=== PATIENT | female | born 1955 | race Caucasian/White ===

== ENCOUNTER 2017-06-05 01:37 | Inpatient (IN) ==
[2017-06-05] MEDS ORDERED: ASPIRIN PO STA (01:49)
[2017-06-05] MEDS ORDERED: DUONEB (A & A) INH ONE (01:51)
[2017-06-05] MEDS ORDERED: SOLU-MEDROL IV ONE (01:51)
[2017-06-05] MEDS ORDERED: ROBITUSSIN PO ONE (01:52)
--- NOTE | 2017-06-05 02:00 | EKG Report ---
Test Performed on : 06/05/2017 01:51:11 AM Test Reason : CP Blood Pressure : / mmHG Vent. Rate : 095 BPM Atrial Rate : 095 BPM P-R Int : 138 ms QRS Dur : 076 ms QT Int : 382 ms P-R-T Axes : 055 013 040 degrees QTc Int : 480 ms Normal sinus rhythm. Cannot rule out Inferior infarct , age undetermined Abnormal ECG When compared with ECG of 01-JUN-2017 15:31, (Unconfirmed) No significant change was found Unconfirmed Result
[2017-06-05 02:06] LABS: MANUAL DIFF NEEDED? NO
[2017-06-05 02:15] LABS: BASO% 0.3 % (0.0-0.8); EOS# 0.38 X1000 (0.0-0.7); EOS% 2.8 % (0.0-10.0); HEMATOCRIT 30.5 % (37.0-47.0); HEMOGLOBIN 9.7 g/dL (12.0-16.0); IMM GRAN# 0.04 X1000 (0.0-0.04); IMM GRAN% 0.3 % (0.0-0.5); LYMPH# 3.91 X1000 (1.2-3.4); LYMPH% 28.6 % (20.5-51.1); MCHC 31.8 g/dL (33-37); MONO# 0.98 X1000 (0.11-0.59); MONO% 7.2 % (1.7-9.3); MPV 10.5 FL (7.4-10.4); NEUT% 60.8 % (42.2-75.2); PLT 330 X1000 (130-400); RBC 3.35 XMIL (4.2-5.4)
[2017-06-05] MEDS ORDERED: ROBITUSSIN ONE (02:24)
[2017-06-05 02:32] LABS: INR 0.9 (0.86-1.15); PROTIME 12.9 Seconds (12.1-15.5); PTT PL 26.4 Seconds (22.6-43.9)
--- NOTE | 2017-06-05 02:48 | PROVIDER DOCUMENTATION ---
This chart was entered by Nataliia Anguiano Scribe, acting as scribe for Wilder Paez MD. HPI-Respiratory General - General Chief Complaint: Shortness of Breath Stated Complaint: short of breath Time Seen by Provider: 06/05/17 01:49 Source: patient Allergies/Adverse Reactions: Patient Allergies Allergy/AdvReac Type Severity Reaction Status Date / Time Sulfa (Sulfonamide Allergy HIVES Verified 04/10/17 08:08 Antibiotics) tramadol Allergy Unknown Verified 06/05/17 02:41 Home Medications: Home Medication List Medication Instructions Recorded Confirmed Last Taken Type Albuterol Sulfate [Proair Hfa] 0 puff IH Q6HR PRN #1 hfa.aer.ad 04/27/17 Unknown Rx Gemfibrozil 600 mg PO DAILY #30 tablet 04/27/17 06/05/17 Unknown Rx Lisinopril 40 mg PO DAILY #30 tablet 06/01/17 06/05/17 Unknown Rx Metformin [Glucophage] 1,000 mg PO BID #60 tablet 06/01/17 06/05/17 Unknown Rx Venlafaxine [Effexor] 75 mg PO DAILY #30 tablet 06/01/17 06/05/17 Unknown Rx - History of Present Illness-Resp Nature of Presenting Problem: 61 Y/O F presents to ER by EMS with the complain of SOB. pt states that she feels like something is sitting on her chest and makes it hard to breathe. pt states that she has COPD and was diagnosed with pneumonia last month. Severity in ED: reports: moderate Onset/Duration: reports: just prior to arrival Timing: reports: still present Exposure: reports: unknown cause Cough Quality/Degree: reports: sputum Current Respiratory Medication Therapy: Initiated see nurses note Review of Systems - Adult - REVIEW OF SYSTEMS - ADULT Constitutional: reports: no symptoms reported Eyes: reports: no symptoms reported Ears, Nose, Mouth & Throat: reports: no symptoms reported Cardiovascular: reports: no symptoms reported Respiratory: reports: cough, shortness of breath, wheezing Gastrointestinal: reports: no symptoms reported Genitourinary: reports: no symptoms reported Musculoskeletal: reports: no symptoms reported Integumentary: reports: no symptoms reported Neurological: reports: no symptoms reported Psychiatric: reports: no symptoms reported Endocrine: reports: no symptoms reported Hematologic/Lymphatic: reports: no symptoms reported Allergic/Immunologic: reports: no symptoms reported All Other Systems: Reviewed and Negative Past History - Adult - PAST MEDICAL HISTORY-ADULT Review of Records: reports: Old Records Reviewed, Nursing Assessment Review Major Childhood Illnesses: reports: denies history Cardiovascular: reports: CHF, HTN, hyperlipidemia Respiratory: reports: bronchitis, COPD Gastrointestinal: reports: GERD Obstetrical/Gynecological: reports: denies history Genitourinary: reports: denies history Musculoskeletal: reports: denies history Neurological: reports: TIA Psychiatric: reports: bipolar Endocrine/Immune: reports: Diabetes Other Conditions: reports: denies history - PRIOR SURGERIES/PROCEDURES Surgical/Procedure History: reports: appendectomy, hysterectomy, tonsillectomy - PRIOR HOSPITALIZATIONS Prior Hospitalizations: reports: none - IMMUNIZATION STATUS Childhood Immunizations: See Nurse Assessment Flu Vaccine: See Nurse Assessment - FAMILY HISTORY Family History: reviewed, not pertinent - SOCIAL HISTORY Smoking: cigarettes Provider spent 3-5 mins advising pt. on dangers of tobacco.: Discussed manners to quit use, and f/u contacts for add'l counseling. Physical Exam-General - PHYSICAL EXAM-ADULT Initial Vital Signs Reviewed: Yes - CONSTITUTIONAL General Appearance: alert, mild distress - EYES Eyes: PERRL/EOMI, pink conjunctivae - HEAD, EARS, NOSE, MOUTH & THROAT HENMT: moist mucous membranes, normal ENT inspection, TMs normal - NECK Neck: non-tender, full range of motion, supple - RESPIRATORY Respiratory: rales, rhonchi, wheezing - CARDIOVASCULAR Cardiovascular: normal peripheral pulses, regular rate, rhythm, no edema - GASTROINTESTINAL (ABDOMEN) Abdominal Exam: normal bowel sounds, non tender, soft - MUSCULOSKELETAL Back Exam: normal inspection, no CVA tenderness, no vertebral tenderness Extremity: non-tender, normal inspection - SKIN Integumentary: normal color, normal turgor, warm/dry - NEUROLOGIC Neurologic: grossly normal, no motor/sensory deficits - PSYCHIATRIC Psych/Mental Status: normal mood/affect, normal thought content, normal thought process, oriented x 3 Progress - PLAN OF CARE/RESULTS Progress/Plan/Lab Results: Vital Signs - 8 hr 06/05/17 01:39 06/05/17 01:57 06/05/17 02:36 Temperature 98.2 F 98.0 F Pulse Rate 102 H 94 H 92 H Respiratory Rate 20 20 20 Blood Pressure 150/92 160/79 O2 Sat by Pulse Oximetry 92 L 94 L 96 Laboratory Results - last 24 hr 06/05/17 06/05/17 06/05/17 02:00 02:00 02:00 WBC 13.69 H RBC 3.35 L Hgb 9.7 L Hct 30.5 L MCV 91.0 MCH 29.0 MCHC 31.8 L RDW Std Deviation 15.5 H Plt Count 330 MPV 10.5 H Immature Gran % (Auto) 0.3 Neut % (Auto) 60.8 Lymph % (Auto) 28.6 Cedar % (Auto) 7.2 Eos % (Auto) 2.8 Baso % (Auto) 0.3 Immature Gran # (Auto) 0.04 Neut # (Auto) 8.34 H Lymph # (Auto) 3.91 H Cedar # (Auto) 0.98 H Eos # (Auto) 0.38 Baso # (Auto) 0.04 PT 12.9 INR 0.90 APTT (Factor Assay) 26.4 Troponin T < 0.010 Orders Category Date Time Status Cardiac Monitoring DIRECTED Care 06/05/17 01:50 Active Oxygen Therapy- ED Nursing DIRECTED Care 06/05/17 01:50 Active Saline Loc NOW Care 06/05/17 01:50 Active CHEST-PORTABLE [RAD] Stat Exams 06/05/17 01:51 Taken CBC WITH ELECTRONIC DIFF [HEME] Stat Lab 06/05/17 02:00 Completed CK PROFILE [SP CHEM] Stat Lab 06/05/17 02:00 Received COMPREHENSIVE METABOLIC PANEL [CHEM] Stat Lab 06/05/17 02:00 Received MAGNESIUM [CHEM] Stat Lab 06/05/17 02:00 Received PRO B-NATRIURETIC PEPTIDE Stat Lab 06/05/17 02:00 Received [address]IME WITH INR PL [COAG] Stat Lab 06/05/17 02:[address] [COAG] Stat Lab 06/05/17 02:00 Completed TROPONIN T Stat Lab 06/05/17 02:00 Completed Albuterol 2.5MG/Ipratrop 0.5MG [Duoneb (A & A)] Med 06/05/17 01:51 Discontinued 3 ml INH NOW ONE Aspirin Med 06/05/17 01:49 Discontinued 325 mg PO STAT STA Guaifenesin [Robitussin] Med 06/05/17 01:52 Discontinued 10 ml PO NOW ONE Guaifenesin [Robitussin] Med 06/05/17 02:24 Discontinued 200 mg .ROUTE .STK-MED ONE Methylprednisolone Sod Succ [Solu-Medrol] Med 06/05/17 01:51 Discontinued 125 mg IV NOW ONE Aerosol Treatments Routine Oth 06/05/17 01:51 Active Aerosol Treatments Stat Oth 06/05/17 01:51 Active EKG [EKG] Stat Ther 06/05/17 01:50 Draft Result Diagrams: 06/05/17 02:00 - EKG 1 Time of EKG reading by physician:: 01:51 EKG Read and Signed by:: Wilder Paez EKG Interpretation (*Must complete 3 of following elements*): Abnormal Rate: 95 Rhythm: normla sinus rhythm Comments: abnomal ECG - XRAY 1 XRAY: Bilateral XRAY Study: Chest Impression: Abnormal XRAY Interpretation: cardiomegaly, otherwise normal by Dr. Paez Departure - Departure Date of Disposition Decision: 06/05/17 Time of Disposition Decision: 02:47 DIAGNOSIS: COPD exacerbation Disposition: ADMITTED INPATIENT 09 Certified Medical Emergency: Emergent Condition: Stable Referrals and Follow-Ups: Shadi Chahal MD [Primary Care Provider] - - Critical Care Note This patient required my direct & personal management of CC.: No Attestation - Physician/ DUNG Attestation The physician spent face to face time with patient:: Yes Advanced Practice Provider documentation review:: Supervising physician onsite and consulted in the evaluation and care of this patient. The physician did have a face to face encounter with the patient. This chart was documented by the indicated scribe, (Nataliia Anguiano Scribe) and accurately reflects the services I performed and decisions made by Jeannine syed Christophe I, MD, as attested by the provider's signature.
[2017-06-05 02:53] LABS: AGAP 14; ALBUMIN 3.8 g/dL (3.5-5.0); ALKALINE PHOSPHATASE 82 U/L (32-104); BUN 12 mg/dL (8-22); CALCIUM 9.4 mg/dL (8.8-10.2); CHLORIDE 109 mmol/L (98-107); CK PROFILE 93 U/L (24-173); COSMO 288; GOT 14 U/L (10-30); GPT 10 U/L (10-36); MAGNESIUM 1.6 mg/dL (1.5-2.7); POTASSIUM 3.6 mmol/L (3.5-5.1); SODIUM 143 mmol/L (136-145); TCO2 20 mmol/L (25-35); TOTAL BILIRUBIN < 0.15 mg/dL (0.20-1.00); TOTAL PROTEIN 6.1 g/dL (6.3-8.3)
[2017-06-05] MEDS ORDERED: DUONEB (A & A) INH PRN (07:26)
[2017-06-05] MEDS: DUONEB (A & A) INH SCH ×3 (09:10→21:44)
--- NOTE | 2017-06-05 09:43 | Diag Imaging Result Doc PS360 ---
EXAM: CHEST-PORTABLE INDICATION: sob TECHNIQUE: One view COMPARISON: 06/01/2017 FINDINGS: The lungs are grossly clear. There is no discrete pleural fluid collection or pneumothorax. The cardiomediastinal silhouette and central vasculature are grossly unremarkable. There are couple old rib fractures on the right. IMPRESSION: No evidence of acute pathology by plain radiograph. Electronically signed by Jack Sunshine 06/05/2017 9:40 AM
[2017-06-05] MEDS ORDERED: VENTOLIN HFA INH PRN (09:50)
[2017-06-05] MEDS: PRINIVIL PO SCH (10:31)
[2017-06-05] MEDS: LOPID PO SCH (10:31)
[2017-06-05] MEDS: LASIX PO SCH (10:31)
[2017-06-05] MEDS: ROCEPHIN 1 GM/NS 1 GM/50 ML IVPB IV SCH (10:34)
[2017-06-05] MEDS: HUMALOG SUBQ SCH ×3 (10:54→20:22)
[2017-06-05] MEDS: EFFEXOR PO SCH (12:11)
[2017-06-05] MEDS: NICODERM PATCH TD SCH (12:11)
--- NOTE | 2017-06-05 12:43 | HISTORY AND PHYSICAL ---
CHIEF COMPLAINT: Shortness of breath x1 week. HISTORY OF PRESENTING ILLNESS: This is a 61-year-old female who presents to [facility] ER with complaints of shortness of breath that has progressively worsened over the last week. States that approximately 1 month ago she was treated for pneumonia. She now has shortness of breath and a productive cough. When she arrived to the emergency room she had an O2 saturation of 92% on room air. Chest x-ray showed no evidence of acute pathology by plain radiograph. Her white blood cells were mildly elevated at 13.69. Per ER documentation she was noted to be having wheezing, rhonchi, and rales so she was admitted for further evaluation and treatment. PAST MEDICAL HISTORY: Bipolar schizoaffective disorder, COPD, CHF, hypertension, hyperlipidemia, GERD, TIA, and diabetes. PAST SURGICAL HISTORY: Appendectomy, hysterectomy, and tonsillectomy. FAMILY HISTORY: Noncontributory. SOCIAL HISTORY: She is currently [facility] at a homeless [facility]. Smokes 1 pack of cigarettes a day and has done so for 40 years. Denies any alcohol or illicit drug use. ALLERGIES: Sulfa and tramadol. HOME MEDICATIONS: She takes ProAir 2 puff inhalation q.6 hours p.r.n., Lasix 40 mg p.o. daily, gemfibrozil 600 mg p.o. daily, lisinopril 40 mg p.o. daily, metformin 500 mg p.o. b.i.d., Seroquel 400 mg p.o. at bedtime, and Effexor 75 mg p.o. daily. LABORATORY DATA: Showed a white blood cell count of 13.69, hemoglobin 9.7, hematocrit 30.5, platelets 330,000. PT and INR of 12.9 and 0.94. Sodium of 143, potassium 3.6, chloride 109, CO2 20, BUN of 12, creatinine 1.0, glucose 158, magnesium 1.6, creatine kinase of 93. Troponin less than 0.010. ProBNP of 624. EKG showed normal sinus rhythm. Chest x-ray showed no evidence of acute pathology by plain radiograph. Sputum culture is pending. REVIEW OF SYSTEMS: She denies any fever, chills, blurred vision, dizziness, chest pain. She has had a productive cough and shortness of breath. Denies any abdominal pain, constipation, diarrhea, or burning or hurting with urination. PHYSICAL EXAMINATION: VITAL SIGNS: On arrival, she had a temperature of 98.2 degrees, pulse 102, respirations 20, blood pressure 150/92, saturating 92% on room air on arrival. Currently she is saturating 95% on 2 L via nasal cannula. GENERAL: This is a 61-year-old morbidly obese, female who is lying in the bed and answers questions appropriately. HEENT: Normocephalic and atraumatic. Pupils are equal, round, reactive to light. Extraocular movements are intact. Oropharynx and nares are clear. NECK: Supple. LUNGS: Clear to auscultation bilaterally with equal lung expansion and chest wall movement. HEART: With regular rate and rhythm. No murmurs, rubs, or gallops. ABDOMEN: Soft, nontender, nondistended. Bowel sounds are present x4 quadrants. EXTREMITIES: There is no clubbing, cyanosis, or edema. NEUROLOGICAL: The cranial nerves 2 through 12 are grossly intact. ASSESSMENT: 1. An acute chronic obstructive pulmonary disease exacerbation. 2. Hyperglycemia with known diabetes type 2. Most likely related to steroid use. 3. Hypertension. 4. Tobacco abuse. PLAN: She was admitted to the medical unit at [facility]. Placed on a diabetic diet. We will continue her home medications as previously identified. Placed on Rocephin 1 gram IV q.24. She received Solu-Medrol 125 mg IV x1 in the ER. When she arrived her lung sounds were rhonchi, rales, and wheezing per ER documentation. This a.m. they are clear, so I am not going to continue any Solu-Medrol at this time. She does have DuoNeb q.6 hours routinely and q.[address] on pattern blood sugars with sliding scale insulin. We will also give a nicotine patch. Discussed smoking cessation with this patient, who verbalized understanding. Dictated by CHARLES Daugherty for Niranjan Johnston MD cc: CHARLES Daugherty MD Moses Awoniyi, MD
[2017-06-05] MEDS: GLUCOPHAGE PO SCH (16:34)
[2017-06-05] MEDS: TYLENOL PO PRN (16:35)
[2017-06-05] MEDS: SEROQUEL PO SCH (20:22)
[2017-06-06] MEDS: DUONEB (A & A) INH SCH ×4 (03:47→22:27)
[2017-06-06 05:50] LABS: MANUAL DIFF NEEDED? NO
[2017-06-06 05:55] LABS: BASO% 0.1 % (0.0-0.8); EOS# 0.08 X1000 (0.0-0.7); EOS% 0.6 % (0.0-10.0); HEMATOCRIT 28.5 % (37.0-47.0); IMM GRAN# 0.05 X1000 (0.0-0.04); IMM GRAN% 0.3 % (0.0-0.5); LYMPH# 3.48 X1000 (1.2-3.4); LYMPH% 24.1 % (20.5-51.1); MCH 28.4 PG (27-31); MCHC 31.6 g/dL (33-37); MCV 89.9 FL (81-99); MONO# 0.92 X1000 (0.11-0.59); MONO% 6.4 % (1.7-9.3); MPV 10.7 FL (7.4-10.4); NEUT% 68.5 % (42.2-75.2); PLT 330 X1000 (130-400); RBC 3.17 XMIL (4.2-5.4)
[2017-06-06] MEDS: HUMALOG SUBQ SCH ×2 (06:18→10:25)
[2017-06-06 06:22] LABS: AGAP 9; BUN 17 mg/dL (8-22); CALCIUM 8.6 mg/dL (8.8-10.2); CHLORIDE 107 mmol/L (98-107); COSMO 286; POTASSIUM 3.7 mmol/L (3.5-5.1); SODIUM 141 mmol/L (136-145); TCO2 26 mmol/L (25-35)
--- NOTE | 2017-06-06 06:28 | PROGRESS NOTE ---
DATE: 06/05/2017 ADDENDUM: Patient was seen and examined and discussed with nurse practitioner. She has been having shortness of breath, cough and congestion past couple of days, decided to come to the hospital but the symptoms did not improve. She actually is feeling a little bit better now than when she got to the ER before her treatments in the ER. Denies any current chest pains or palpitations. States that she is wheezing. We will admit her to the hospital, treat in usual fashion. Place her on antibiotics, steroids, breathing treatments and oxygen. cc: Niranjan Johnston MD
[2017-06-06] MEDS: EFFEXOR PO SCH (09:12)
[2017-06-06] MEDS: NICODERM PATCH TD SCH (09:12)
[2017-06-06] MEDS: LASIX PO SCH (09:12)
[2017-06-06] MEDS: GLUCOPHAGE PO SCH ×2 (09:13→17:05)
[2017-06-06] MEDS: PRINIVIL PO SCH (09:13)
[2017-06-06] MEDS: LOPID PO SCH (09:13)
[2017-06-06] MEDS: ROCEPHIN 1 GM/NS 1 GM/50 ML IVPB IV SCH (10:25)
[2017-06-06] MEDS: TYLENOL PO PRN ×2 (10:27→17:10)
--- NOTE | 2017-06-06 14:52 | PROGRESS NOTE ---
DATE: 06/06/2017 SUBJECTIVE: Ms Burr states that she is breathing better. She denies any chest pain or palpitations. OBJECTIVE: Vital Signs: Blood pressure is 169/82, with a heart rate of 100, respirations 18, temperature is 97.6 degrees axillary, with O2 saturations of 96% to 98% on 2 L nasal cannula. Cardiovascular: Regular rate and rhythm. S1 and S2 appreciated. Pulmonary: Breath sounds have some scattered wheezes, although they are very faint. Gastrointestinal: Abdomen is soft, nontender and nondistended, with bowel sounds in all 4 quadrants. Extremities: No clubbing, cyanosis, or edema. Calves are nontender. Pulses are palpable. LABORATORIES: WBC is 14.4, with a hemoglobin of 9, hematocrit of 28.5, and platelets of 330,000. Sodium is 141, potassium 3.7, BUN 17, creatinine 0.8, with blood sugars ranging in the 130- to 200- range. ASSESSMENT: 1. [id number], chronic obstructive pulmonary disease exacerbation. 2. Hyperglycemia, with known diabetes type 2. This is most likely related to steroids. 3. Hypertension. 4. Tobacco use and abuse. PLAN: We will continue with her current treatments. She does have some scattered wheezes. We will place her on a low-dose of p.o. prednisone. We will continue to follow pattern of blood glucose with sliding-scale insulin, as well as labs. Will continue with nicotine patch. Dictated by CHARLES Goldman for Niranjan Johnston MD cc: CHARLES Goldman MD
[2017-06-06] MEDS: HUMALOG DOSE (PARKWAY) SUBQ SCH ×2 (17:05→21:51)
[2017-06-06] MEDS: SEROQUEL PO SCH (21:51)
[2017-06-07] MEDS: DUONEB (A & A) INH SCH ×4 (03:29→22:08)
--- NOTE | 2017-06-07 03:54 | PROGRESS NOTE ---
DATE: 06/06/2017 ADDENDUM: Patient seen and examined. Discussed with and care plan made with nurse practitioner involved. Patient states she is feeling a little bit better. She is wheezing but not as bad as on admission, slept a little better last night. Denies any chest pain, palpitations. PLAN: Will continue breathing treatments, antibiotics, oxygen. Will wean steroids, hopefully home in the next 1-2 days. cc: Niranjan Johnston MD
[2017-06-07] MEDS: HUMALOG DOSE (PARKWAY) SUBQ SCH ×4 (06:34→21:20)
[2017-06-07] MEDS: NICODERM PATCH TD SCH (08:58)
[2017-06-07] MEDS: PRINIVIL PO SCH (08:58)
[2017-06-07] MEDS: EFFEXOR PO SCH (08:58)
[2017-06-07] MEDS: LOPID PO SCH (08:58)
[2017-06-07] MEDS: GLUCOPHAGE PO SCH ×2 (08:58→16:58)
[2017-06-07] MEDS: LASIX PO SCH (08:59)
[2017-06-07] MEDS ORDERED: SOLU-MEDROL IV SCH (09:00)
[2017-06-07] MEDS: ROCEPHIN 1 GM/NS 1 GM/50 ML IVPB IV SCH (09:32)
[2017-06-07] MEDS: SOLU-MEDROL IV SCH ×2 (09:32→16:58)
[2017-06-07] MEDS: TYLENOL PO PRN ×2 (10:26→20:44)
--- NOTE | 2017-06-07 16:26 | PROGRESS NOTE ---
DATE: 06/07/2017 SUBJECTIVE: Ms. Burr states that she is breathing better today. She continues with supplemental oxygen. She denies any chest pain, fever, chills, cough. OBJECTIVE: Vital Signs: Blood pressure is 129/57 with a heart rate of 90, respirations are 20, temperature is 98.5 degrees with O2 saturations are 94-97% on 2 L nasal cannula. Cardiovascular: Regular rate and rhythm, S1, S2 appreciated. Pulmonary: She does have some scattered wheezes, although they are very faint. Chest rises and falls symmetrically with respiration. No increased work of breathing noted. Gastrointestinal: Abdomen is soft, nontender, nondistended. Bowel sounds in all 4 quadrants. Extremities: No clubbing, cyanosis, or edema. Calves are nontender. Pulses are palpable x4. LABORATORY: Blood sugars are ranging in the 130-190 range. ASSESSMENT: 1. Acute on chronic obstructive pulmonary disease exacerbation, improving. 2. Hyperglycemia, with known diabetes type 2. This is most likely related to steroids. We will continue to monitor. 3. Hypertension. 4. Tobacco use and abuse. PLAN: We will continue with her current treatment and continue with oral steroid. We will continue with her current regimen. Continue with steroids IV. Dictated by CHARLES Goldman for Niranjan Johnston MD cc: CHARLES Goldman MD
[2017-06-07] MEDS: SEROQUEL PO SCH (20:38)
[2017-06-08] MEDS: SOLU-MEDROL IV SCH (00:10)
[2017-06-08] MEDS: DUONEB (A & A) INH SCH ×4 (03:35→21:40)
[2017-06-08] MEDS: HUMALOG DOSE (PARKWAY) SUBQ SCH ×4 (06:17→21:16)
[2017-06-08 06:24] LABS: HEMATOCRIT 33.3 % (37.0-47.0); HEMOGLOBIN 10.8 g/dL (12.0-16.0); MCH 28.7 PG (27-31); MCHC 32.4 g/dL (33-37); MCV 88.6 FL (81-99); MPV 10.7 FL (7.4-10.4); RBC 3.76 XMIL (4.2-5.4)
[2017-06-08 07:06] LABS: AGAP 13; BUN 26 mg/dL (8-22); CALCIUM 8.8 mg/dL (8.8-10.2); CHLORIDE 97 mmol/L (98-107); COSMO 286; SODIUM 134 mmol/L (136-145); TCO2 24 mmol/L (25-35)
[2017-06-08] MEDS: LASIX PO SCH (08:07)
[2017-06-08] MEDS: LOPID PO SCH (08:07)
[2017-06-08] MEDS: NICODERM PATCH TD SCH (08:07)
[2017-06-08] MEDS: EFFEXOR PO SCH (08:07)
[2017-06-08] MEDS: GLUCOPHAGE PO SCH ×2 (08:07→16:22)
[2017-06-08] MEDS: PRINIVIL PO SCH (08:07)
[2017-06-08] MEDS ORDERED: SOLU-MEDROL IV SCH ×2 (09:00)
[2017-06-08] MEDS ORDERED: ROCEPHIN 1 GM in NS 50 ML IV SCH (10:00)
[2017-06-08] MEDS: TYLENOL PO PRN (16:22)
--- NOTE | 2017-06-08 20:00 | PROGRESS NOTE ---
DATE: 06/08/2017 SUBJECTIVE: Patient without any new complaints. States that she is feeling much better. Denies any chest pain, palpitations. Denies any fevers. States she is still tired and fatigued, having difficulty getting to the restroom. OBJECTIVE: Vital Signs: Reviewed. She is afebrile. Blood pressure is stable. Heart rate stable. Respiratory rate 22. General: Patient is awake, alert, currently in no respiratory distress. Neck: Supple. Cardiovascular: Regular rate. Chest: Much more clear. Better air movement. Abdomen: Soft. Extremities: Moves all extremities. Neurologic: No focal changes. Skin: Warm and dry. No rashes. LABORATORY STUDIES: Reviewed. ASSESSMENT: 1. Chronic obstructive pulmonary disease exacerbation. 2. Pulmonary edema. 3. Chronic tobacco abuse. PLAN: Discussed with patient the perils of smoking, as well as ways to stop. Discussed with patient the breathing treatments. We will continue to follow. Hopefully, we will be able to decrease her steroids today and home tomorrow. cc: Niranjan Johnston MD
[2017-06-08] MEDS: SEROQUEL PO SCH (21:18)
[2017-06-09] MEDS: TYLENOL PO PRN ×2 (00:06→13:49)
[2017-06-09] MEDS: DUONEB (A & A) INH SCH (03:33)
[2017-06-09 06:23] LABS: HEMATOCRIT 30.9 % (37.0-47.0); HEMOGLOBIN 9.8 g/dL (12.0-16.0); MCH 28.7 PG (27-31); MCHC 31.7 g/dL (33-37); MCV 90.4 FL (81-99); MPV 10.5 FL (7.4-10.4); RBC 3.42 XMIL (4.2-5.4)
[2017-06-09] MEDS: HUMALOG DOSE (PARKWAY) SUBQ SCH (06:24)
[2017-06-09 06:56] LABS: AGAP 11; ALBUMIN 3.4 g/dL (3.5-5.0); ALKALINE PHOSPHATASE 70 U/L (32-104); BUN 36 mg/dL (8-22); CALCIUM 8.4 mg/dL (8.8-10.2); CHLORIDE 103 mmol/L (98-107); COSMO 298; GOT 6 U/L (10-30); GPT 8 U/L (10-36); POTASSIUM 3.4 mmol/L (3.5-5.1); SODIUM 141 mmol/L (136-145); TCO2 28 mmol/L (25-35); TOTAL BILIRUBIN < 0.15 mg/dL (0.20-1.00); TOTAL PROTEIN 5.9 g/dL (6.3-8.3)
[2017-06-09] MEDS ORDERED: OMNICEF PO SCH (09:00)
[2017-06-09] MEDS ORDERED: ZITHROMAX PO SCH (09:00)
[2017-06-09] MEDS: LASIX PO SCH (10:20)
[2017-06-09] MEDS: NICODERM PATCH TD SCH (10:20)
[2017-06-09] MEDS: EFFEXOR PO SCH (10:20)
[2017-06-09] MEDS: LOPID PO SCH (10:20)
[2017-06-09] MEDS: PRINIVIL PO SCH (10:20)
[2017-06-09] MEDS: GLUCOPHAGE PO SCH (10:20)
[2017-06-09 12:08] VITALS: BP 122/59
--- NOTE | 2017-06-09 17:39 | DISCHARGE SUMMARY ---
ADMISSION DATE: 06/05/2017 DISCHARGE DATE: 06/09/2017 DIAGNOSES: 1. Acute on chronic obstructive pulmonary disease exacerbation. Resolved. 2. Hyperglycemia with known diabetes type 2. Most likely related to steroid use. 3. Hypertension. 4. Tobacco abuse. DIAGNOSTICS: 06/05/2017, chest x-ray revealed no evidence of acute pathology. HOSPITAL COURSE: Ms. Burr presented to the emergency room complaining of shortness of breath. She was found have a COPD exacerbation for which she was treated with DuoNeb q.4 with q.2 p.r.n. Steroids to taper. She did gradually improve throughout the hospitalization. We did continue her home medications as appropriate. Blood sugars were monitored. On admission she had and she was at 350. Throughout the hospitalization they did range from 160-250. PHYSICAL EXAMINATION: Cardiovascular: Regular rate and rhythm. S1, S2 appreciated. Pulmonary: Breath sounds have diminished wheezes that are much better than on admission. She has no increased work of breathing noted. Gastrointestinal: Abdomen is soft, nontender, nondistended with bowel sounds in all 4 quadrants. Extremities: No clubbing, cyanosis, or edema. Calves are nontender. Pulses are palpable x4. DISCHARGE MEDICATIONS: 1. Effexor 75 mg daily. 2. Glucophage a 1000 b.i.d. 3. Gemfibrozil 600 daily. 4. Lisinopril 40 daily. 5. Lasix 40 daily. 6. Albuterol inhaler 1 puff every 6 hours p.r.n. 7. Seroquel 400 at bedtime. 8. NicoDerm patch 21 mg daily. 9. Medrol Dosepak 4 mg as directed. 10. Omnicef 300 mg b.i.d. 11. Zithromax 500 daily. 12. Tylenol 650 q.4 hours p.r.n. FOLLOWUP: She is to follow up with her primary care physician Dr. Chahal in the next 1-2 weeks sooner if needed. The patient did state that she was concerned about having money to pay for prescriptions. Child Care Worker did work with the patient in finding affordable medications. DISPOSITION: She is being discharged home in stable condition with family members. TIME SPENT: This is a greater than 30 minute discharge. Dictated by CHARLES Goldman for Niranjan Johnston MD cc: CHARLES Goldman MD
--- NOTE | 2017-06-10 03:47 | PROGRESS NOTE ---
DATE: 06/09/2017 ADDENDUM: Patient notes that she is feeling fine. She is having a little bit of cough, but otherwise feels better. On physical exam, her lungs are much more clear. The patient is seen and examined. Plan discussed with nurse practitioner please see full note. Will discharge home. Continue Medrol Dosepak, Omnicef. I will write a prescription for Seroquel and NicoDerm patch. Discussed with patient the perils of smoking. cc: Niranjan Johnston MD
== END 2017-06-09 14:10 | disposition home or self-care (01) ==
LOC: P.ED 01:37 → P.MEDSURG 03:30
PROVIDERS: ATTEND Family Medicine

== ENCOUNTER 2019-03-19 19:49 | Inpatient (IN) ==
[2019-03-19] MEDS ORDERED: DUONEB (A & A) INH ONE (20:09)
[2019-03-19] MEDS ORDERED: SOLU-MEDROL IV ONE ×2 (20:10→21:13)
[2019-03-19 20:53] LABS: BLOOD TYPE ARTERIAL; HCO3-(ACT) 26.2 mmoll (20.0-26.0); METHB 1.4 % (0.0-1.5); PO2(98.6) 67 mmHg (60-100); SAMPLE BLOOD; SAO2 95.8 % (95.0-100.0); THB 11.2 g/dL (11.5-17.4)
[2019-03-19 20:55] LABS: BASO# 0.03 X1000 (0.0-0.2); BASO% 0.3 % (0.0-0.8); EOS% 2.6 % (0.0-10.0); HEMOGLOBIN 10.3 g/dL (12.0-16.0); IMM GRAN# 0.04 X1000 (0.0-0.04); IMM GRAN% 0.4 % (0.0-0.5); LYMPH# 2.46 X1000 (1.2-3.4); LYMPH% 21.6 % (20.5-51.1); MCH 27.5 PG (27-31); MCHC 31.2 g/dL (33-37); MCV 88.2 FL (81-99); MONO# 0.69 X1000 (0.11-0.59); MONO% 6.1 % (1.7-9.3); MPV 10.7 FL (7.4-10.4); NEUT# 7.85 X1000 (1.4-6.5); PLT 293 X1000 (130-400); RBC 3.74 XMIL (4.2-5.4); RDW 15.5 % (11.5-14.5); WBC 11.37 X1000 (4.8-10.8)
[2019-03-19 20:55] LABS: O2HB 82.1 % (95.0-99.0); PCO2(98.6) 60 mmHg (35-45)
[2019-03-19 20:56] LABS: ALLEN TEST NO; MODALITY CANNULA
--- NOTE | 2019-03-19 21:19 | Diag Imaging Result Doc PS360 ---
EXAM: CHEST-PORTABLE HISTORY: sob TECHNIQUE: Portable chest single view COMPARISON: 05/12/2018 FINDINGS: The lungs are well expanded. The heart is enlarged. The vessels are not distended. There are no infiltrates. No effusion identified. Old injury to a mid right rib. IMPRESSION: Cardiomegaly Electronically signed by Armani Adrian 03/19/2019 9:17 PM
[2019-03-19 21:27] LABS: AGAP 12; ALBUMIN 3.6 g/dL (3.5-5.0); ALKALINE PHOSPHATASE 75 U/L (32-104); BUN 22 mg/dL (8-22); CALCIUM 8.5 mg/dL (8.8-10.2); CHLORIDE 102 mmol/L (98-107); COSMO 284; CREATININE 1.2 mg/dL (0.5-0.9); ESTIMATED GFR 45; GLUCOSE 158 mg/dL (70-104); GOT 17 U/L (10-30); GPT 15 U/L (10-36); POTASSIUM 4.3 mmol/L (3.5-5.1); SODIUM 139 mmol/L (136-145); TCO2 25 mmol/L (25-35); TOTAL BILIRUBIN < 0.15 mg/dL (0.20-1.00); TOTAL PROTEIN 6.6 g/dL (6.3-8.3)
[2019-03-19] MEDS ORDERED: DUONEB (A & A) INH PRN (21:39)
[2019-03-19] MEDS ORDERED: NORCO-5 PO ONE (22:21)
[2019-03-19] MEDS ORDERED: ZOFRAN IV ONE (22:21)
[2019-03-19] MEDS: DUONEB (A & A) INH SCH (23:46)
[2019-03-20 00:42] LABS: BILIRUBIN URINE NEGATIVE (NEGATIVE); BLOOD URINE 3+ (NEGATIVE); CLARITY CLEAR (CLEAR); COLOR YELLOW; GLUCOSE URINE NEGATIVE (NEGATIVE); KETONE URINE NEGATIVE (NEGATIVE); LEUKOCYTES URINE 1+ (NEGATIVE); NITRITE URINE NEGATIVE (NEGATIVE); PROTEIN URINE 2+(100 mg/dL) mg/dL (NEGATIVE); UROBILINOGEN URINE NORMAL
[2019-03-20 00:47] LABS: URINE WBC TNTC /HPF (<10)
[2019-03-20 00:48] LABS: URINE EPITHELIAL CELLS <10 /HPF (<10)
[2019-03-20 00:49] LABS: URINE BACTERIA 2+ /HFP; URINE CAST NONE SEEN /LPF; URINE CRYSTAL NONE SEEN /HPF; URINE SOURCE CLEAN CATCH; URINE YEAST NONE SEEN /HPF
[2019-03-20] MEDS: DUONEB (A & A) INH SCH ×5 (03:46→19:13)
[2019-03-20 05:46] LABS: BE -1.6 mmoll (-3.0-3.0); BLOOD TYPE ARTERIAL; HCO3-(ACT) 23.4 mmoll (20.0-26.0); METHB 1.1 % (0.0-1.5); O2(CT) 13.9 mL/dL (15.0-23.0); PO2(98.6) 59 mmHg (60-100); SAMPLE BLOOD; SAO2 89.6 % (95.0-100.0); THB 11.8 g/dL (11.5-17.4); pH(98.6) 7.21 (7.35-7.45)
[2019-03-20 05:50] LABS: ALLEN TEST NO; MODALITY CANNULA; O2HB 83.7 % (95.0-99.0); PCO2(98.6) 69 mmHg (35-45)
[2019-03-20] MEDS: SOLU-MEDROL IV SCH ×4 (06:14→21:15)
[2019-03-20] MEDS ORDERED: MAGNESIUM SULFATE 4 GM/S.W.I. 4 GM/100 ML IVPB IV ONE (10:21)
[2019-03-20] MEDS ORDERED: ROCEPHIN 1 GM in NS 50 ML IV SCH ×4 (10:30)
[2019-03-20] MEDS ORDERED: ZITHROMAX 500 MG/NS 500 MG/250 ML IVPB IV SCH (11:00)
[2019-03-20] MEDS: NAPROSYN PO SCH ×2 (11:04→21:16)
[2019-03-20] MEDS: NORCO-10 PO PRN ×2 (11:04→17:29)
[2019-03-20] MEDS: EFFEXOR XR PO SCH (11:04)
[2019-03-20] MEDS: LASIX PO SCH (11:04)
[2019-03-20] MEDS: ZYLOPRIM PO SCH ×2 (11:05→21:16)
[2019-03-20] MEDS: GLUCOPHAGE PO SCH ×3 (11:05→17:25)
[2019-03-20] MEDS: KLOR-CON PO SCH (11:05)
[2019-03-20] MEDS: INDOCIN PO SCH ×2 (11:05→21:15)
[2019-03-20] MEDS: LOPRESSOR PO SCH ×2 (11:05→21:15)
[2019-03-20] MEDS: THERA M PLUS PO SCH (11:05)
[2019-03-20] MEDS: NORVASC PO SCH (11:06)
[2019-03-20] MEDS: HUMALOG (PARKWAY) SUBQ SCH ×3 (11:08→21:22)
--- NOTE | 2019-03-20 11:11 | HISTORY AND PHYSICAL ---
PRIMARY CARE PHYSICIAN: Dr. Chahal. CHIEF COMPLAINT: Shortness of breath x1 day that progressively worsened. HISTORY OF PRESENT ILLNESS: This is a 63-year-old female who presents to [facility] ER with complaints of shortness of breath that progressively worsened over 1 day. States she does not use O2 at home, and continues to smoke a pack of cigarettes a day. Her workup in the ER showed an O2 saturation on room air of 86% on arrival. White blood cell count was 11.37. ABG on 4 L via nasal cannula showed a pH of 7.30, pCO2 of 60, PO2 of 67, bicarb 26.2. Magnesium was 1.3. Urinalysis showed 1+ white blood cells, 2+ bacteria. Chest x-ray shows cardiomegaly, so she will be admitted for further evaluation and treatment. PAST MEDICAL HISTORY: CHF, COPD, hypertension, hyperlipidemia, GERD, TIA, bipolar, and dementia. PAST SURGICAL HISTORY: Appendectomy, hysterectomy, tonsillectomy, cholecystectomy, and a hip surgery. FAMILY HISTORY: Reviewed and noncontributory. SOCIAL HISTORY: She currently lives alone. Smokes 1 pack of cigarettes a day, and has done so for the past 45 years. Denies any alcohol or illicit drug use. ALLERGIES: Sulfa and tramadol. HOME MEDICATIONS: She takes: 1. Allopurinol 100 mg p.o. b.i.d. 2. Amlodipine 10 mg p.o. daily. 3. Atorvastatin 20 mg p.o. at bedtime. 4. Cetirizine 10 mg p.o. at bedtime. 5. Esomeprazole 40 mg p.o. daily. 6. Lasix 40 mg p.o. daily. 7. [place] 10 one p.o. every 6 hours p.r.n. 8. Indomethacin 50 mg p.o. b.i.d. 9. Lantus SoloStar 40 units subcutaneously at bedtime. 10. NovoLog 70/30 mix 15 units subcutaneously at bedtime, 25 units subcutaneous daily. 11. Metformin 1000 mg p.o. b.i.d. 12. Metoprolol 25 mg p.o. b.i.d. 13. Multivitamin p.o. daily. 14. Naproxen 500 mg p.o. b.i.d. 15. Potassium 8 mEq p.o. daily. 16. Quetiapine 500 mg p.o. at bedtime total. 17. Venlafaxine 150 mg p.o. daily. IMAGING AND LABORATORY DATA: Laboratory data showed a white blood cell count of 11.37, hemoglobin 10.3, hematocrit 33.0, platelets 293,000. An ABG on arrival showed a pH of 7.30, pCO2 of 60, PO2 of 67, bicarb 26.2, and this was on 4 L via nasal cannula. Repeat this morning showed a pH down to 7.21, pCO2 of 69, PO2 of 59, bicarb 23.4, and this was also on 4 L via nasal cannula. Sodium 139, potassium 4.3, chloride 102, CO2 of 25, BUN of 22, creatinine 1.2, glucose 158. Magnesium 1.3. ProBNP of 501. Urinalysis with negative nitrites, 1+ white blood cells, 2+ bacteria. Chest x-ray showed cardiomegaly. REVIEW OF SYSTEMS: She denied any fever, chills, blurred vision, dizziness, chest pain. She has had a nonproductive cough, shortness of breath. Denied any abdominal pain, constipation, diarrhea, burning or hurting with urination. PHYSICAL EXAMINATION: VITAL SIGNS: On arrival, she had a temperature of 98.3 degrees, a pulse of 96, respirations 20, blood pressure 147/87, saturating 86% on room air, currently at 93% on her BiPAP. GENERAL: This is a 63-year-old female who is lying in the bed and answers questions appropriately. HEENT: Normocephalic, atraumatic. Normal ENT inspection. Oropharynx and nares are clear. Eyes: Pupils are equal, round, reactive to light and accommodation. Extraocular movements are intact. NECK: Normal inspection. Normal range of motion. LUNGS: With wheezing scattered throughout posterior lung harris, with decreased breath sounds in the bases. Equal lung expansion. Chest wall movement noted. HEART: Regular rate and rhythm. No murmurs, rubs, or gallops. On arrival, she had 3+ pitting edema bilaterally. Currently, she has 1+ pitting edema bilaterally. ABDOMEN: Soft, nontender, nondistended. Bowel sounds are present x4 quadrants. MUSCULOSKELETAL: She has 5/5 strength x4 extremities. NEUROLOGICAL: Cranial nerves II through XII appear grossly intact. ASSESSMENT: 1. Acute chronic obstructive pulmonary disease exacerbation. 2. Acute respiratory failure. 3. Hypomagnesemia. 4. Diabetes type 2. 5. Urinary tract infection. 6. Tobacco abuse. PLAN: She was admitted to the medical unit at [place], placed on telemetry, O2 per protocol, and currently is on BiPAP. We are obtaining a urine culture. Will place her on Rocephin 1 gram IV every 24 hours, DuoNebs every 4 hours routinely and every [address] her on Solu-Medrol 60 mg IV every 8 hours, and will wean as she improves. Placed on pattern blood sugars with sliding scale insulin. Going to place her on a nicotine patch. I did discuss the importance of smoking cessation with this patient, who verbalizes understanding. Will recheck a CBC, BMP in the a.m., and further orders after seen by attending. Will add magnesium sulfate 4 grams IV x1, and will check a magnesium level in the morning as well. Dictated by CHARLES Daugherty for Danilo Shukla MD Addendum: Patient seen and examined by myself. Agree with CHARLES note. It reflects my assessment and plan. Patient is being admitted to hospital for COPD exacerbation. Unfortunately she continues to smoke. Will check ABG daily and BIPAP as needed. Will monitor this patient closely. cc: CHARLES Daugherty MD Moses Awoniyi, MD MTDD
[2019-03-20] MEDS: NICODERM PATCH TD SCH (11:27)
[2019-03-20] MEDS ORDERED: NOVOLOG MIX 70/30 (PARKWAY) SUBQ SCH (16:00)
--- NOTE | 2019-03-20 16:02 | EKG Report ---
Test Performed on : 03/19/2019 8:05:43 PM Test Reason : ER Blood Pressure : / mmHG Vent. Rate : 095 BPM Atrial Rate : 095 BPM P-R Int : 140 ms QRS Dur : 078 ms QT Int : 366 ms P-R-T Axes : 055 018 041 degrees QTc Int : 459 ms Normal sinus rhythm. Low voltage QRS Borderline ECG When compared with ECG of 25-APR-2018 19:57, Vent. rate has decreased BY 47 BPM Unconfirmed Result
[2019-03-20] MEDS ORDERED: LIPITOR PO SCH (21:00)
[2019-03-20] MEDS ORDERED: SEROQUEL PO SCH ×2 (21:00)
[2019-03-20] MEDS ORDERED: ZYRTEC PO SCH (21:00)
[2019-03-20] MEDS ORDERED: LANTUS INSULIN SUBQ SCH (21:00)
[2019-03-21] MEDS: DUONEB (A & A) INH SCH ×7 (00:15→23:12)
[2019-03-21] MEDS: NORCO-10 PO PRN ×4 (01:27→19:22)
[2019-03-21] MEDS: SOLU-MEDROL IV SCH ×3 (05:43→22:38)
[2019-03-21] MEDS: HUMALOG (PARKWAY) SUBQ SCH ×2 (06:13→11:08)
[2019-03-21 06:46] LABS: EOS# 0.01 X1000 (0.0-0.7); EOS% 0.1 % (0.0-10.0); HEMOGLOBIN 10.4 g/dL (12.0-16.0); IMM GRAN# 0.06 X1000 (0.0-0.04); IMM GRAN% 0.4 % (0.0-0.5); LYMPH# 1.45 X1000 (1.2-3.4); LYMPH% 8.9 % (20.5-51.1); MCH 27.4 PG (27-31); MCHC 30.6 g/dL (33-37); MCV 89.7 FL (81-99); MONO# 0.86 X1000 (0.11-0.59); MONO% 5.3 % (1.7-9.3); MPV 10.5 FL (7.4-10.4); NEUT# 13.83 X1000 (1.4-6.5); NEUT% 85.3 % (42.2-75.2); PLT 315 X1000 (130-400); RBC 3.79 XMIL (4.2-5.4); RDW 15.7 % (11.5-14.5); WBC 16.21 X1000 (4.8-10.8)
[2019-03-21 06:55] LABS: CREATININE 1.3 mg/dL (0.5-0.9); MAGNESIUM 1.6 mg/dL (1.5-2.7)
[2019-03-21] MEDS ORDERED: NEXIUM PO SCH (07:00)
[2019-03-21] MEDS ORDERED: NOVOLOG MIX 70/30 (PARKWAY) SUBQ SCH (07:30)
[2019-03-21] MEDS: NICODERM PATCH TD SCH ×2 (07:39→09:08)
[2019-03-21] MEDS: NAPROSYN PO SCH ×3 (07:39→20:15)
[2019-03-21] MEDS: GLUCOPHAGE PO SCH (07:39)
[2019-03-21] MEDS: ZYLOPRIM PO SCH ×3 (07:39→20:15)
[2019-03-21] MEDS: EFFEXOR XR PO SCH ×2 (07:39→09:07)
[2019-03-21] MEDS: NORVASC PO SCH ×2 (07:40→09:08)
[2019-03-21] MEDS: KLOR-CON PO SCH ×2 (07:40→09:07)
[2019-03-21] MEDS: THERA M PLUS PO SCH ×2 (07:40→09:08)
[2019-03-21] MEDS: LASIX PO SCH ×2 (07:40→09:07)
[2019-03-21] MEDS: INDOCIN PO SCH ×2 (07:40→09:07)
[2019-03-21] MEDS: LOPRESSOR PO SCH ×3 (07:40→20:15)
[2019-03-21 08:23] LABS: BE 1.5 mmoll (-3.0-3.0); BLOOD TYPE ARTERIAL; HCO3-(ACT) 25.9 mmoll (20.0-26.0); METHB 0.8 % (0.0-1.5); O2(CT) 14.1 mL/dL (15.0-23.0); PO2(98.6) 64 mmHg (60-100); SAMPLE BLOOD; SAO2 92.7 % (95.0-100.0); THB 11.1 g/dL (11.5-17.4); pH(98.6) 7.23 (7.35-7.45)
[2019-03-21 08:25] LABS: PCO2(98.6) 73 mmHg (35-45)
[2019-03-21 08:28] LABS: ALLEN TEST YES
[2019-03-21 08:53] LABS: MODALITY VENTIMASK
[2019-03-21 09:41] LABS: LYMPHS 9 % (21-51); MONO 4 % (1-9); SEGS 87 % (42-75)
[2019-03-21] MEDS ORDERED: TESSALON PO PRN (12:44)
[2019-03-21] MEDS ORDERED: ROCEPHIN 2 GM in NS 50 ML IV SCH (13:00)
--- NOTE | 2019-03-21 13:24 | PROGRESS NOTE ---
DATE: 03/21/2019 SUBJECTIVE: The patient reports breathing better. Sometimes, he had spells of cough. OBJECTIVE: Vital Signs: Temperature 97.4 degrees, heart rate 95, respiratory rate 16, blood pressure 133/82, O2 saturation 92% on BiPAP mask. General: This is a chronically ill-appearing and looking older than her stated age, 63-year-old, female, lying in bed in no acute distress. Cardiovascular: S1, S2 heard. No murmurs, gallops, or rubs. Regular rate and rhythm. Respiratory: Still wheezing noted in both pulmonary harris, with minimal rhonchi in both bases as well. The patient is not using any accessory muscles or having work of breathing. Abdomen: Soft, nontender to palpation. Bowel sounds present. No organomegaly. Extremities: No clubbing or cyanosis. There is 3+ pedal edema in both lower extremities. Neurological: The patient is alert and oriented x3. Moves 4 extremities. LABORATORY DATA: White cell count 16.31, hemoglobin 10.4, hematocrit 34.0, platelets 315,000. ABG shows pH of 7.23, with pCO2 of 73, PO2 of 64. That was taken on Ventimask at 50%. Creatinine 1.3, glucose 171. ASSESSMENT AND PLAN: 1. Acute hypercarbic and hypoxemic respiratory failure secondary to chronic obstructive pulmonary disease exacerbation. Unfortunately, despite using bilevel positive airway pressure and DuoNeb every 4 hours as scheduled, the patient continues to be in respiratory acidosis. At this point, we have encouraged this patient to use bilevel positive airway pressure, not only at night, but during the day as much as she can, and having breaks for meals. Considering her ABG that is not progressing as we were expecting, I prefer to go ahead and transfer this patient to [facility] to have a pulmonary evaluation, and will go from there. 2. Hypomagnesemia. Magnesium has been replaced. Will continue with the same management. 3. Diabetes mellitus type 2. Will continue with Accu-Chek before meals and also at bedtime, and sliding scale insulin as well. 4. Urinary tract infection. At this point, the urine culture just showed gram-negative rods. Patient receiving ceftriaxone 1 gram intravenously every 24 hours that we are going to increase to 2 grams, and continue with azithromycin. 5. Tobacco abuse. Patient advised strongly about the need to stop smoking completely. The patient acknowledged understanding. 6. Disposition. We are transferring this patient to [facility] for pulmonary evaluation. cc: Danilo Shukla MD
[2019-03-21] MEDS ORDERED: DUONEB (A & A) INH PRN (14:56)
[2019-03-21] MEDS: TESSALON PO PRN (15:23)
[2019-03-21] MEDS: ROCEPHIN 2 GM in NS 50 ML IV SCH (15:24)
[2019-03-21 15:34] LABS: INR 0.85; PROTIME 12.3 Seconds (11.0-16.0)
[2019-03-21] MEDS ORDERED: SODIUM BICARBONATE PO ONE (16:02)
[2019-03-21] MEDS: LASIX IV SCH ×2 (16:21→22:37)
[2019-03-21] MEDS: HUMALOG SUBQ SCH ×2 (16:21→21:56)
[2019-03-21] MEDS ORDERED: SODIUM BICARBONATE 8.4% 150 MEQ in D5W 1,000 ML IV SCH (17:00)
[2019-03-21] MEDS: NOVOLOG MIX 70/30 SUBQ SCH (18:19)
[2019-03-21] MEDS: SEROQUEL PO SCH (20:14)
[2019-03-21] MEDS: LIPITOR PO SCH (20:14)
[2019-03-21] MEDS: ZYRTEC PO SCH (20:15)
[2019-03-21] MEDS: LANTUS INSULIN SUBQ SCH (21:56)
--- NOTE | 2019-03-21 23:30 | PULMONOLOGY CONSULTATION ---
DATE: 03/21/2019 REQUESTING PHYSICIAN: Dr. Peters. REASON FOR CONSULTATION: Respiratory acidosis despite BiPAP. HISTORY OF PRESENT ILLNESS: Ms. Burr is a 63-year-old white female with COPD, morbid obesity and a BMI of greater than 40, ongoing extensive tobacco history who presented to the emergency room with increased cough, increased shortness of breath, with increasing lower extremity edema. Oxygen saturation upon arrival was 86%. Arterial blood gas revealed significant hypoxemia and CO2 retention. The patient is awake, alert, and conversant. She would like to go home without oxygen because she lives in a homeless residential and she may not be able to live there if she is wearing oxygen. PAST MEDICAL HISTORY PROBLEM LIST: 1. Morbid obesity. By clinical weight she has gained approximately 40 pounds over the last 2 years. 2. Chronic obstructive pulmonary disease with ongoing tobacco use. 3. Bipolar disorder. 4. Gastroesophageal reflux disease 5. History of TIA. 6. Status post cholecystectomy 7. Status post hip surgery, 8. Status post appendectomy. 9. Status post hysterectomy. 1. Status post tonsillectomy. FAMILY HISTORY: Noncontributory to current presentation. SOCIAL HISTORY: The patient denies alcohol use. She has been smoking greater than or equal to 1 pack a day for the last 40 years. She currently lives in the [facility]. REVIEW OF SYSTEMS: Is as noted by the HPI, but is otherwise negative. OBJECTIVE: General: The patient awake and alert. Vital Signs: She has been afebrile during this hospitalization. Blood pressure 133/76, heart rate 106, respiratory rate 20, oxygen saturation 94% on 6 L. HEENT: Pupils are equal and reactive. Oropharynx is clear. Neck: Supple. Chest: Reveals diminished breath sounds bilaterally. Cardiac: Regular rate. Normal S1. Normal S2. Abdomen: Obese and soft. Extremities: Reveal trace to 1+ peripheral edema. LABORATORY DATA: Chest x-ray performed on 03/19/2019 reveals cardiomegaly without acute infiltrates. Arterial blood gas reveals a pH of 7.23, pCO2 of 73, pO2 of 64, with a serum bicarbonate of 25. Electrolytes: Sodium 137, potassium 5.0, bicarbonate level 27, BUN 41, creatinine 1.3. Previous bicarbonate level on chemistries dated 05/15/2018 was 35. IMPRESSION: A 63-year-old with: 1. Acute hypoxemic respiratory failure. 2. Acute on chronic hypercapnic respiratory failure. 3. Chronic renal insufficiency. 4. Ongoing tobacco use. 5. Carboxyhemoglobin poisoning with a carboxyhemoglobin level of 12.9 on admission most likely due to tobacco use. 6. Acute cor pulmonale. 7. Nicotine addiction with ongoing tobacco. DISCUSSION: A 63-year-old with the problems outlined above. Her CO2 retention/respiratory acidosis is most likely due to a combination of morbid obesity with a BMI greater than 40, with a weight gain as outlined above, along with decreased ventilatory ability associated with her COPD. The patient's COPD and obesity would dictate that her serum bicarbonate level should be greater than 35, but she is only 27. This is likely due to her chronic renal insufficiency. It is important that she stop smoking. She may require oxygen at discharge due to her acute cor pulmonale, but this may make her living situation difficult. RECOMMENDATIONS: 1. We will give a dose of bicarbonate to see if this will help decrease her acidemia. It may actually make her CO2 retention greater. 2. Oxygen for hypoxemic respiratory failure. 3. Agree with nicotine patch along with repeated reinforcement about the need for smoking cessation. 4. Long-term the patient would benefit from weight loss. 5. Overall prognosis is guarded. cc: Guillaume Parks MD
[2019-03-22] MEDS: NORCO-10 PO PRN ×4 (01:37→20:02)
[2019-03-22] MEDS: DUONEB (A & A) INH SCH ×6 (03:01→23:37)
[2019-03-22] MEDS: NOVOLOG MIX 70/30 SUBQ SCH ×2 (06:12→16:44)
[2019-03-22] MEDS: NEXIUM PO SCH (06:15)
[2019-03-22] MEDS: HUMALOG SUBQ SCH ×4 (06:18→20:50)
[2019-03-22] MEDS: SOLU-MEDROL IV SCH ×3 (06:19→22:38)
[2019-03-22] MEDS: NAPROSYN PO SCH (08:14)
[2019-03-22] MEDS: NICODERM PATCH TD SCH (08:14)
[2019-03-22] MEDS: THERA M PLUS PO SCH (08:14)
[2019-03-22] MEDS: NORVASC PO SCH (08:14)
[2019-03-22] MEDS: EFFEXOR XR PO SCH (08:15)
[2019-03-22] MEDS: LOPRESSOR PO SCH ×2 (08:15→20:51)
[2019-03-22] MEDS: ZYLOPRIM PO SCH ×2 (08:15→20:51)
[2019-03-22] MEDS ORDERED: LASIX PO SCH (09:00)
[2019-03-22] MEDS ORDERED: MICRO-K PO SCH (09:00)
[2019-03-22 10:11] LABS: ALLEN TEST YES; BE 5.1 mmoll (-3.0-3.0); BLOOD TYPE ARTERIAL; HCO3-(ACT) 28.8 mmoll (20.0-26.0); METHB 0.8 % (0.0-1.5); O2(CT) 13.1 mL/dL (15.0-23.0); PO2(98.6) 62 mmHg (60-100); SAMPLE BLOOD; SAO2 93.2 % (95.0-100.0); THB 10.2 g/dL (11.5-17.4); pH(98.6) 7.31 (7.35-7.45)
[2019-03-22 10:16] LABS: MODALITY CANNULA; PCO2(98.6) 65 mmHg (35-45)
[2019-03-22 10:27] LABS: AGAP 10; ALB/GLOB RATIO 1.4; ALBUMIN 3.7 g/dL (3.5-5.0); ALKALINE PHOSPHATASE 66 U/L (32-104); BUN 54 mg/dL (8-22); CHLORIDE 93 mmol/L (98-107); COSMO 297; CREATININE 1.5 mg/dL (0.5-0.9); ESTIMATED GFR 35; GLUCOSE 390 mg/dL (70-104); GOT 9 U/L (10-30); GPT 15 U/L (10-36); POTASSIUM 5.1 mmol/L (3.5-5.1); SODIUM 133 mmol/L (136-145); TCO2 30 mmol/L (25-35); TOTAL BILIRUBIN < 0.15 mg/dL (0.20-1.00); TOTAL PROTEIN 6.3 g/dL (6.3-8.3)
[2019-03-22] MEDS ORDERED: ZITHROMAX 500 MG/NS 500 MG/250 ML IVPB IV SCH (11:00)
[2019-03-22] MEDS: ROCEPHIN 2 GM in NS 50 ML IV SCH (16:43)
--- NOTE | 2019-03-22 16:58 | PROGRESS NOTE ---
DATE: 03/22/2019 SUBJECTIVE: Patient resting in bed. Not in any obvious distress. OBJECTIVE: Vital signs: Temperature 98.0, pulse 92, respiratory rate 16, blood pressure 135/59, oxygen 97%. HEENT: Atraumatic, normocephalic. Cardiovascular: S1, S2. Respiratory: Has evidence of good entry bilaterally. Abdomen: Obese, nontender. No masses felt. Extremities: No significant edema. Central Nervous System: No obvious focal deficits noted. LABS: ABG 7.31/55/62/93.2%. Sodium is 133, potassium 5.1, chloride is 93, bicarb is 20, BUN is 54, creatinine is 1.5. Blood sugar 390. Urine culture positive for Proteus mirabilis. ASSESSMENT AND PLAN: 1. Acute hypercapnic respiratory failure. Maintain patient on BiPAP as needed. Pulmonary team is following. 2. Chronic obstructive pulmonary disease exacerbation. Maintain patient on nebulized bronchodilators, steroids, as well as antibiotics. Closely follow up on patient's respiratory status, including chest x-ray as well as arterial blood gases. 3. Urinary tract infection secondary to Proteus mirabilis. Continue current antibiotic regimen. 4. Diabetes mellitus. Monitor blood sugar levels and maintain patient on sliding scale insulin. 5. Tobacco use history. Continue nicotine patch. 6. Leukocytosis, probably secondary to steroid effect. 7. Acute kidney injury. Discontinue naproxen as well as Lasix. Avoid other nephrotoxic agents and follow up on renal function. cc: Igor Posey MD
[2019-03-22] MEDS: LANTUS INSULIN SUBQ SCH (20:43)
[2019-03-22] MEDS: SEROQUEL PO SCH (20:50)
[2019-03-22] MEDS: LIPITOR PO SCH (20:51)
[2019-03-22] MEDS: ZYRTEC PO SCH (20:51)
[2019-03-22] MEDS: TESSALON PO PRN (21:01)
--- NOTE | 2019-03-23 00:24 | PULMONOLOGY PROGRESS NOTE ---
DATE: 03/22/2019 SUBJECTIVE: The patient is awake, alert, and conversant. She reports she has had a good day. She reports her shortness of breath has significantly diminished. She is not pleased that she is requiring 5 to 6 L of oxygen to maintain her saturation because she wishes to be discharged without oxygen. OBJECTIVE: Vital Signs: The patient has been afebrile for the last 24 hours. Blood pressure 145/67, heart rate 104, respiratory rate 16, oxygen saturation 95% on 6 L per nasal cannula. HEENT: Pupils are equal and reactive. Oropharynx appears clear. Neck: Supple. Chest: Reveals prolonged expiratory phase with diminished breath sounds. Extremities: Reveal trace peripheral edema. LABORATORIES: Arterial blood gas this morning reveals a pH of 7.31, pCO2 of 65, pO2 of 62. Sodium 133, potassium 5.1, chloride 93, bicarbonate 30, BUN 54, creatinine 1.5, glucose 390. IMPRESSION: A 63-year-old with: 1. Acute hypoxemic respiratory failure. 2. Acute on chronic hypercapnic respiratory failure. 3. Chronic renal insufficiency. 4. Ongoing tobacco use. 5. Carboxyhemoglobin poisoning on admission due to excessive tobacco use. 6. Acute cor pulmonale. 7. Nicotine addiction with ongoing tobacco use. DISCUSSION: A 63-year-old with problems outlined above. She has significantly improved from an acidemia standpoint. The patient's acidemia is related to CO2 retention associated with COPD and morbid obesity, along with due to inadequate metabolic compensation secondary to chronic renal insufficiency. RECOMMENDATIONS: 1. Continue to encourage the patient to abstain from tobacco use. 2. long term, she would benefit from weight loss. 3. Continue oxygen for hypoxemic respiratory failure. 4. Anticipate the need for oxygen at the time of discharge. cc: Guillaume Parks MD
[2019-03-23] MEDS: NORCO-10 PO PRN ×4 (03:12→21:12)
[2019-03-23] MEDS: DUONEB (A & A) INH SCH ×5 (03:41→18:52)
[2019-03-23 04:55] LABS: ALLEN TEST YES; BE 8.3 mmoll (-3.0-3.0); BLOOD TYPE ARTERIAL; HCO3-(ACT) 31.3 mmoll (20.0-26.0); PO2(98.6) 76 mmHg (60-100); SAMPLE BLOOD; pH(98.6) 7.34 (7.35-7.45)
[2019-03-23 04:59] LABS: MODALITY CANNULA; PCO2(98.6) 68 mmHg (35-45)
[2019-03-23] MEDS: SOLU-MEDROL IV SCH ×3 (06:28→23:01)
[2019-03-23] MEDS: NOVOLOG MIX 70/30 SUBQ SCH ×2 (06:31→16:19)
[2019-03-23] MEDS: NEXIUM PO SCH (06:31)
[2019-03-23] MEDS: HUMALOG SUBQ SCH ×4 (06:32→21:11)
--- NOTE | 2019-03-23 06:57 | Diag Imaging Result Doc PS360 ---
EXAM: CHEST-1 VIEW 03/23/2019 HISTORY: copd TECHNIQUE: AP portable at 0635 COMMENT: There is cardiomegaly and increased pulmonary vascularity. The inspiration is less optimal than on 03/19/2019. The study is slightly underexposed. There may be some atelectasis in the lingula and lower lobes. Otherwise has been no significant change since the previous study. IMPRESSION: Cardiomegaly. Subsegmental atelectasis. Electronically signed by Gio Osuna 03/23/2019 6:54 AM
[2019-03-23 08:07] LABS: HEMATOCRIT 33.3 % (37.0-47.0); HEMOGLOBIN 10.3 g/dL (12.0-16.0); IMM GRAN# 0.06 X1000 (0.0-0.04); IMM GRAN% 0.4 % (0.0-0.5); LYMPH# 0.67 X1000 (1.2-3.4); LYMPH% 4.1 % (20.5-51.1); MCH 27.5 PG (27-31); MCHC 30.9 g/dL (33-37); MCV 88.8 FL (81-99); MONO# 0.36 X1000 (0.11-0.59); MONO% 2.2 % (1.7-9.3); MPV 10.4 FL (7.4-10.4); NEUT# 15.41 X1000 (1.4-6.5); NEUT% 93.3 % (42.2-75.2); PLT 317 X1000 (130-400); RBC 3.75 XMIL (4.2-5.4); RDW 15.6 % (11.5-14.5)
[2019-03-23 08:32] LABS: AGAP 10; ALB/GLOB RATIO 1.5; ALBUMIN 3.7 g/dL (3.5-5.0); ALKALINE PHOSPHATASE 63 U/L (32-104); BUN 47 mg/dL (8-22); CALCIUM 8.9 mg/dL (8.8-10.2); CHLORIDE 97 mmol/L (98-107); COSMO 305; CREATININE 1.2 mg/dL (0.5-0.9); ESTIMATED GFR 45; GLUCOSE 343 mg/dL (70-104); GOT 9 U/L (10-30); GPT 15 U/L (10-36); SODIUM 140 mmol/L (136-145); TCO2 33 mmol/L (25-35); TOTAL BILIRUBIN < 0.15 mg/dL (0.20-1.00); TOTAL PROTEIN 6.2 g/dL (6.3-8.3)
[2019-03-23 08:39] LABS: BANDS 2 % (0-1); HYPOCHROM 1+; LYMPHS 2 % (21-51); SEGS 96 % (42-75)
[2019-03-23] MEDS: EFFEXOR XR PO SCH (10:31)
[2019-03-23] MEDS: LOPRESSOR PO SCH ×2 (10:32→21:12)
[2019-03-23] MEDS: THERA M PLUS PO SCH (10:32)
[2019-03-23] MEDS: ZYLOPRIM PO SCH ×2 (10:32→21:12)
[2019-03-23] MEDS: NORVASC PO SCH (10:32)
[2019-03-23] MEDS: NICODERM PATCH TD SCH (10:32)
[2019-03-23] MEDS: LOVENOX SUBQ SCH (10:33)
--- NOTE | 2019-03-23 15:03 | PROGRESS NOTE ---
DATE: 03/23/2019 SUBJECTIVE: The patient resting comfortably in bed. Not in any obvious distress. OBJECTIVE: Vital Signs: Temperature is 98.2 degrees, pulse 91, respiratory rate is 20, blood pressure is 117/49, oxygen 95%. HEENT: Atraumatic, normocephalic. Cardiovascular: S1, S2. Respiratory: Has evidence of good air entry bilaterally. Abdomen: Soft, nontender. No masses felt. Extremities: No evidence of edema. Central nervous system: No obvious focal deficit noted. LABS: WBCs 16.5, hematocrit is 30.3, platelet count of 317. ABG 7.34/58/76. Chemistry: Sodium is 140, potassium 5.0, chloride 97, bicarb 33, BUN is 47, creatinine is 1.2. ASSESSMENT AND PLAN: 1. Acute hypercapnic respiratory failure. Maintain patient on BiPAP as needed. Pulmonary team is following. 2. Chronic obstructive pulmonary disease exacerbation. Maintain patient on nebulized bronchodilators, steroids, as well as antibiotics. 3. Urinary tract infection secondary to Proteus mirabilis. Continue current antibiotic regimen. 4. Diabetes mellitus. Continue blood sugar monitoring as well as sliding scale insulin. 5. Tobacco use history. Maintain patient on nicotine patch. 6. Leukocytosis, probably secondary to steroid effect. 7. Acute kidney injury, improving. Avoid nephrotoxic agent. 8. Deep vein thrombosis prophylaxis. Lovenox. 9. Gastrointestinal prophylaxis. Proton pump inhibitor. cc: Igor Posey MD
[2019-03-23] MEDS: ROBITUSSIN-DM PO PRN (15:12)
[2019-03-23] MEDS: ROCEPHIN 2 GM in NS 50 ML IV SCH (15:18)
[2019-03-23] MEDS: LANTUS INSULIN SUBQ SCH (21:10)
[2019-03-23] MEDS: SEROQUEL PO SCH (21:12)
[2019-03-23] MEDS: ZYRTEC PO SCH (21:12)
[2019-03-23] MEDS: LIPITOR PO SCH (21:12)
[2019-03-24] MEDS: DUONEB (A & A) INH SCH ×8 (00:20→23:45)
[2019-03-24] MEDS: NORCO-10 PO PRN ×4 (03:14→22:02)
[2019-03-24] MEDS: NOVOLOG MIX 70/30 SUBQ SCH ×2 (06:16→15:57)
[2019-03-24] MEDS: HUMALOG SUBQ SCH ×4 (06:17→21:35)
[2019-03-24] MEDS: SOLU-MEDROL IV SCH ×2 (06:17→15:57)
[2019-03-24] MEDS: NEXIUM PO SCH (06:18)
[2019-03-24 10:28] LABS: ALLEN TEST YES; BE 9.7 mmoll (-3.0-3.0); BLOOD TYPE ARTERIAL; HCO3-(ACT) 32.4 mmoll (20.0-26.0); METHB 0.8 % (0.0-1.5); O2(CT) 14.7 mL/dL (15.0-23.0); O2HB 92.9 % (95.0-99.0); PO2(98.6) 65 mmHg (60-100); SAMPLE BLOOD; SAO2 95.3 % (95.0-100.0); THB 11.2 g/dL (11.5-17.4); pH(98.6) 7.41 (7.35-7.45)
[2019-03-24 10:29] LABS: MODALITY CANNULA
[2019-03-24 10:31] LABS: PCO2(98.6) 57 mmHg (35-45)
[2019-03-24] MEDS: NICODERM PATCH TD SCH (10:37)
[2019-03-24] MEDS: NORVASC PO SCH (10:38)
[2019-03-24] MEDS: LOPRESSOR PO SCH ×2 (10:38→20:50)
[2019-03-24] MEDS: EFFEXOR XR PO SCH (10:38)
[2019-03-24] MEDS: THERA M PLUS PO SCH (10:38)
[2019-03-24] MEDS: ZYLOPRIM PO SCH ×2 (10:39→20:50)
[2019-03-24] MEDS: LOVENOX SUBQ SCH (10:39)
[2019-03-24] MEDS: ROCEPHIN 2 GM in NS 50 ML IV SCH (15:55)
--- NOTE | 2019-03-24 16:46 | PROGRESS NOTE ---
DATE: 03/24/2019 SUBJECTIVE: Today Ms. Burr refers to be feeling a little better. Still have some wheezing, however. OBJECTIVE: Vital signs: Her blood pressure is 144/72, pulse of 78, respirations 20, temperature 97.9 degrees. On general exam, Ms. Burr is a 63-year-old morbidly obese female, BMI of 39.5. She is in bed, does not seem to be in any distress. She is still on nasal cannula. Mucosa is pink and moist. Anicteric. Acyanotic. Neck is supple. Chest: Air entry is bilaterally reduced. There is prolonged expiratory phase of respiration. There is also some diffuse expiratory wheezing in both lung harris. Cardiovascular: Regular rate and rhythm. Abdomen is soft, distended but nontender. Bowel sounds present. Extremities: No pedal edema. VEHICLE SERVICE AGENT: The patient is awake, alert and oriented. There is no focal neurological deficit. LABORATORY DATA: None for today. ABG shows pCO2 continues to be 57, but it is much better than before. DIAGNOSTIC DATA: No imaging studies today. ASSESSMENT AND PLAN: 1. Acute hypoxemic respiratory failure. The patient is on oxygen therapy. 2. [id number]-bj-wukeucb hypercarbic respiratory failure. 3. Chronic obstructive pulmonary disease exacerbation. 4. Diabetes mellitus. 5. Chronic kidney disease stage 3A, stable. 6. History of tobacco abuse before hospitalization, with admitting carboxyhemoglobin level of 12.90. The patient has been counseled. cc: Sage Benedict MD
[2019-03-24] MEDS: SEROQUEL PO SCH (20:50)
[2019-03-24] MEDS: ZYRTEC PO SCH (20:50)
[2019-03-24] MEDS: XANAX PO SCH (20:50)
[2019-03-24] MEDS: LIPITOR PO SCH (20:50)
[2019-03-24] MEDS: LANTUS INSULIN SUBQ SCH (21:35)
[2019-03-25] MEDS: SOLU-MEDROL IV SCH ×4 (00:03→23:28)
[2019-03-25] MEDS: DUONEB (A & A) INH SCH ×6 (03:36→22:25)
[2019-03-25] MEDS: NORCO-10 PO PRN ×4 (04:27→23:28)
[2019-03-25] MEDS: NOVOLOG MIX 70/30 SUBQ SCH ×2 (06:52→16:31)
[2019-03-25] MEDS: HUMALOG SUBQ SCH ×4 (06:54→20:57)
[2019-03-25] MEDS: NEXIUM PO SCH (06:54)
--- NOTE | 2019-03-25 07:43 | Diag Imaging Result Doc PS360 ---
EXAM: CHEST-1 VIEW INDICATION: SOB TECHNIQUE: One view COMPARISON: 03/23/2019 FINDINGS: Interstitial edema and pulmonary venous congestion is approximately stable. There is increased opacity at the right lung base as compared to the previous study indicating atelectasis and/or infiltrate. Opacity at the left lung base is improved, however. There may be a small pleural effusion on the right. No other new consolidation is identified. There is stable cardiomegaly. IMPRESSION: Interval worsening on the right but improvement on the left as described. Electronically signed by Jack Sunshine 03/25/2019 7:41 AM
[2019-03-25 07:54] LABS: BASO# 0.01 X1000 (0.0-0.2); BASO% 0.1 % (0.0-0.8); HEMATOCRIT 35.4 % (37.0-47.0); HEMOGLOBIN 10.9 g/dL (12.0-16.0); IMM GRAN# 0.08 X1000 (0.0-0.04); IMM GRAN% 0.6 % (0.0-0.5); LYMPH# 0.75 X1000 (1.2-3.4); LYMPH% 5.5 % (20.5-51.1); MCH 27.5 PG (27-31); MCHC 30.8 g/dL (33-37); MCV 89.2 FL (81-99); MONO# 0.54 X1000 (0.11-0.59); MPV 10.7 FL (7.4-10.4); NEUT# 12.27 X1000 (1.4-6.5); NEUT% 89.8 % (42.2-75.2); PLT 285 X1000 (130-400); RBC 3.97 XMIL (4.2-5.4); RDW 15.1 % (11.5-14.5); WBC 13.65 X1000 (4.8-10.8)
[2019-03-25 08:05] LABS: BANDS 1 % (0-1); HYPOCHROM 1+; LYMPHS 11 % (21-51); MONO 3 % (1-9); SEGS 84 % (42-75)
[2019-03-25] MEDS: ZYLOPRIM PO SCH ×2 (08:06→20:43)
[2019-03-25] MEDS: NORVASC PO SCH (08:06)
[2019-03-25] MEDS: THERA M PLUS PO SCH (08:06)
[2019-03-25] MEDS: LOPRESSOR PO SCH ×2 (08:06→20:43)
[2019-03-25] MEDS: EFFEXOR XR PO SCH (08:06)
[2019-03-25 08:07] LABS: CALCIUM 8.7 mg/dL (8.8-10.2); POTASSIUM 4.2 mmol/L (3.5-5.1)
[2019-03-25] MEDS: LOVENOX SUBQ SCH (08:12)
[2019-03-25] MEDS: NICODERM PATCH TD SCH (08:13)
[2019-03-25] MEDS ORDERED: INSULIN PEN NEEDLES ONE (09:44)
[2019-03-25] MEDS: ROCEPHIN 2 GM in NS 50 ML IV SCH (16:36)
--- NOTE | 2019-03-25 17:39 | PROGRESS NOTE ---
DATE: 03/25/2019 SUBJECTIVE: Patient resting comfortably. Not in any obvious distress. OBJECTIVE: Vital Signs: Temperature 98.2 degrees, pulse 82, respiratory rate 16, blood pressure is 140/68, oxygen saturation 92%. HEENT: Atraumatic, normocephalic. Cardiovascular System: S1, S2. Respiratory system has evidence of good air entry bilaterally. Abdomen is soft, nontender. No masses felt. Extremities: No evidence of edema. Central Nervous System: No obvious focal deficit noted. DIAGNOSTIC STUDIES: WBC is 13.6, hematocrit is 35.4, with a platelet count of 285,000. Sodium is 143, potassium is 4.2, chloride is 101, bicarbonate is 32, BUN is 23, creatinine is 1.0. ASSESSMENT AND PLAN: 1. Acute hypercapnic respiratory failure. Maintain patient on BiPAP as needed. Pulmonary team following. 2. Chronic obstructive pulmonary disease exacerbation. Continue nebulized bronchodilators, steroids, as well as antibiotics. 3. Urinary tract infection secondary to Proteus mirabilis. Continue current antibiotic regimen. 4. Diabetes mellitus. Continue to monitor blood sugar levels and maintain patient on sliding scale insulin. 5. Tobacco use history. nicotine patch recommended. 6. Leukocytosis, probably secondary to steroid effect. 7. Acute kidney injury. Follow up on renal function. Avoid nephrotoxic agents. 8. Deep vein thrombosis prophylaxis. Lovenox. 9. Gastrointestinal prophylaxis. Proton pump inhibitor. cc: Igor Posey MD MTDD
[2019-03-25] MEDS: TESSALON PO PRN (20:42)
[2019-03-25] MEDS: LIPITOR PO SCH (20:42)
[2019-03-25] MEDS: SEROQUEL PO SCH (20:42)
[2019-03-25] MEDS: ZYRTEC PO SCH (20:43)
[2019-03-25] MEDS: LANTUS INSULIN SUBQ SCH (20:56)
[2019-03-25] MEDS: XANAX PO SCH (20:57)
[2019-03-26] MEDS: DUONEB (A & A) INH SCH ×6 (03:45→22:25)
[2019-03-26] MEDS: NORCO-10 PO PRN ×3 (05:55→17:56)
[2019-03-26] MEDS: HUMALOG SUBQ SCH ×4 (06:55→21:39)
[2019-03-26] MEDS: NOVOLOG MIX 70/30 SUBQ SCH ×2 (06:56→17:25)
[2019-03-26] MEDS: NEXIUM PO SCH (06:56)
[2019-03-26] MEDS: THERA M PLUS PO SCH (09:28)
[2019-03-26] MEDS: EFFEXOR XR PO SCH (09:28)
[2019-03-26] MEDS: LOPRESSOR PO SCH ×2 (09:28→21:32)
[2019-03-26] MEDS: NORVASC PO SCH (09:28)
[2019-03-26] MEDS: NICODERM PATCH TD SCH (09:29)
[2019-03-26] MEDS: ZYLOPRIM PO SCH ×2 (09:29→21:32)
[2019-03-26] MEDS: SOLU-MEDROL IV SCH (09:29)
[2019-03-26] MEDS: LOVENOX SUBQ SCH (09:29)
[2019-03-26] MEDS: XANAX PO SCH ×2 (13:55→21:32)
--- NOTE | 2019-03-26 15:20 | PROGRESS NOTE ---
DATE: 03/26/2019 SUBJECTIVE: The patient resting comfortable. OBJECTIVE: Vital Signs: As follows: Temperature 98.2, pulse 76, respirations 22, blood pressure is 139/57. Oxygen saturation is 96%. HEENT: Atraumatic, normocephalic. Cardiovascular: S1, S2. Respiratory: Has evidence of good air entry bilaterally. Abdomen: Soft, nontender. No masses felt. Extremities: No evidence of edema. Central Nervous System: No obvious focal deficit noted. LABORATORY: None, except for blood sugar of 261. ASSESSMENT AND PLAN: 1. Acute hypercapnic respiratory failure. Maintain patient on BiPAP as needed. Pulmonary following. 2. COPD, extubation. Continue nebulized bronchodilators, steroids as well as antibiotics. 3. Urinary tract infection secondary to Proteus mirabilis. Continue current antibiotic regimen. 4. Diabetes mellitus. Monitor blood sugar levels and maintain patient on sliding scale insulin. 5. Tobacco use history. Nicotine patch. 6. Leukocytosis secondary to steroid effect. 7. Acute kidney injury. Renal function improving. Avoid nephrotoxic agents. 8. DVT prophylaxis. Lovenox. 9. GI prophylaxis. Proton pump inhibitor. cc: Igor Posey MD
[2019-03-26] MEDS: ROCEPHIN 2 GM in NS 50 ML IV SCH (17:16)
[2019-03-26] MEDS: PREDNISONE PO SCH (17:18)
[2019-03-26] MEDS: SEROQUEL PO SCH (21:32)
[2019-03-26] MEDS: ZYRTEC PO SCH (21:32)
[2019-03-26] MEDS: LIPITOR PO SCH (21:32)
[2019-03-26] MEDS: LANTUS INSULIN SUBQ SCH (21:38)
[2019-03-27] MEDS: NORCO-10 PO PRN ×3 (00:21→12:07)
[2019-03-27] MEDS: DUONEB (A & A) INH SCH ×4 (02:40→15:53)
[2019-03-27] MEDS ORDERED: LASIX IV ONE (06:00)
[2019-03-27] MEDS: HUMALOG SUBQ SCH ×2 (06:05→12:04)
[2019-03-27] MEDS: NOVOLOG MIX 70/30 SUBQ SCH (06:07)
[2019-03-27] MEDS: NEXIUM PO SCH (06:08)
[2019-03-27 07:13] LABS: HEMATOCRIT 35.8 % (37.0-47.0); HEMOGLOBIN 11.2 g/dL (12.0-16.0); IMM GRAN# 0.08 X1000 (0.0-0.04); IMM GRAN% 0.6 % (0.0-0.5); LYMPH# 0.63 X1000 (1.2-3.4); LYMPH% 4.5 % (20.5-51.1); MCH 27.5 PG (27-31); MCHC 31.3 g/dL (33-37); MCV 87.7 FL (81-99); MONO# 0.52 X1000 (0.11-0.59); MONO% 3.7 % (1.7-9.3); MPV 10.2 FL (7.4-10.4); NEUT# 12.64 X1000 (1.4-6.5); NEUT% 91.2 % (42.2-75.2); PLT 300 X1000 (130-400); RBC 4.08 XMIL (4.2-5.4); RDW 14.8 % (11.5-14.5); WBC 13.87 X1000 (4.8-10.8)
[2019-03-27 07:37] LABS: AGAP 10; ALB/GLOB RATIO 1.5; ALBUMIN 3.4 g/dL (3.5-5.0); ALKALINE PHOSPHATASE 59 U/L (32-104); BUN 31 mg/dL (8-22); CALCIUM 8.7 mg/dL (8.8-10.2); CHLORIDE 99 mmol/L (98-107); COSMO 295; ESTIMATED GFR 56; GLUCOSE 301 mg/dL (70-104); GOT 11 U/L (10-30); GPT 21 U/L (10-36); LYMPHS 12 % (21-51); MONO 4 % (1-9); POTASSIUM 4.3 mmol/L (3.5-5.1); SEGS 84 % (42-75); SODIUM 139 mmol/L (136-145); TCO2 30 mmol/L (25-35); TOTAL BILIRUBIN < 0.15 mg/dL (0.20-1.00); TOTAL PROTEIN 5.7 g/dL (6.3-8.3)
[2019-03-27 07:38] LABS: HYPOCHROM 1+
--- NOTE | 2019-03-27 07:57 | Diag Imaging Result Doc PS360 ---
CHEST-2 VIEWS - 03/27/2019 INDICATION: abnormal exam COMPARISON: 03/25/2019 FINDINGS: Stable cardiomegaly and pulmonary vascular congestion. There has been improvement in the patchy bibasilar infiltrates/edema. There are trace pleural effusions. No new infiltrates. IMPRESSION: Improvement in the bibasilar pulmonary edema. Electronically signed by Dennis Avila 03/27/2019 7:54 AM
[2019-03-27 08:20] VITALS: BP 135/64
--- NOTE | 2019-03-27 08:44 | PULMONOLOGY PROGRESS NOTE ---
DATE: 03/26/2019 SUBJECTIVE: The patient is awake, alert, and conversant. She reports she feels better. She is anxious to go home. OBJECTIVE: Vital Signs: The patient has been afebrile for the last 24 hours. BP 144/62, heart rate 91, respiratory rate 20, and oxygen saturation 93% on 3 L per nasal cannula. HEENT and Neck: Pupils are equal and reactive. Oropharynx is clear. Neck is supple. Lungs: Chest reveals diminished breath sounds bilaterally with prolonged expiratory phase. Cardiovascular: Exam with distant heart sounds. Normal S1, normal S2. Abdomen: Soft and obese. Extremities: Reveal trace edema. LABORATORIES: Chest x-ray yesterday revealed increased changes at the right base with decreased changes at the left base. No recent arterial blood gas. No chemistries or CBC today. IMPRESSION: A 63-year-old with the followin. Acute hypoxemic respiratory failure. 2. Acute on chronic hypercapnic respiratory failure. 3. Chronic renal insufficiency. 4. Diabetes mellitus. 5. Ongoing tobacco use. 6. Carboxyhemoglobin poisoning during admission. 7. Acute cor pulmonale. 8. Nicotine addiction. DISCUSSION: A 63-year-old with problems outlined above. She has had some clinical improvement with decreased oxygen requirements, but she continues to require at least 3 L per nasal cannula. The patient does report that she is committed to smoking cessation. PLAN: 1. Additional Lasix dosing as tolerated. 2. Wean oxygen as tolerated. 3. Two-view chest x-ray tomorrow. 4. Consider antibiotic change if she has progressive pulmonary infiltrates. cc: Guillaume Parks MD
[2019-03-27] MEDS: NICODERM PATCH TD SCH (09:19)
[2019-03-27] MEDS: LOVENOX SUBQ SCH (09:19)
[2019-03-27] MEDS: EFFEXOR XR PO SCH (09:19)
[2019-03-27] MEDS: LOPRESSOR PO SCH (09:19)
[2019-03-27] MEDS: THERA M PLUS PO SCH (09:19)
[2019-03-27] MEDS: ZYLOPRIM PO SCH (09:19)
[2019-03-27] MEDS: PREDNISONE PO SCH (09:19)
[2019-03-27] MEDS: XANAX PO SCH (09:19)
[2019-03-27] MEDS: NORVASC PO SCH (09:19)
[2019-03-27] MEDS ORDERED: INSULIN PEN NEEDLES ONE (11:10)
[2019-03-27] MEDS: ROBITUSSIN-DM PO PRN (12:13)
[2019-03-27] MEDS ORDERED: PNEUMOVAX 23 IM ONE (15:27)
--- NOTE | 2019-03-28 04:51 | DISCHARGE SUMMARY ---
ADMISSION DATE: 03/19/2019 DISCHARGE DATE: 03/27/2019 DISPOSITION: Home. FOLLOWUP: 1. Shadi Chahal MD 2. Guillaume Parks MD CONSULTATIONS: During this admission, Pulmonary Medicine was consulted. The patient was seen by Dr. Parks. IMAGING STUDIES: Of significance, multiple chest x-rays were done during the hospital course. ADMISSION DIAGNOSES: 1. Chronic obstructive pulmonary disease exacerbation. 2. Acute respiratory failure. 3. Hypomagnesemia. 4. Diabetes mellitus. 5. Tobacco abuse. 6. Questionable urinary tract infection. DISCHARGE DIAGNOSES: 1. Acute hypoxemic respiratory failure. 2. Eipea-md-efpnawj hypercarbic respiratory failure. 3. Chronic obstructive pulmonary disease exacerbation. 4. Diabetes mellitus. 5. Chronic kidney disease stage IIIA. 6. History of tobacco abuse. 7. Obesity, with body mass index of 41.1. 8. Gout. DISCHARGE MEDICATIONS: 1. Amlodipine 10 mg p.o. daily. 2. Atorvastatin 20 mg p.o. at bedtime. 3. Furosemide 40 mg daily. 4. Glargine 40 units subcutaneous at bedtime. 5. Insulin 70/30, 25 units p.o. in the morning and in the evening. 6. Metformin 1000 mg b.i.d. 7. Metformin 25 mg p.o. b.i.d. 8. Naproxen 50 mg b.i.d. 9. Quetiapine 100 mg at bedtime. 10. Esomeprazole 40 mg p.o. daily. 11. Prednisone 20 mg daily. 12. Augmentin 875 b.i.d. PRESENTING COMPLAINT: Shortness of breath. HISTORY OF PRESENTING COMPLAINT: Ms. Burr is a 63-year-old female who is known to have COPD, uses home oxygen; however, Ms. Burr also continues to be smoking. She started having some shortness of breath, presented to the emergency department and was found to have an oxygen saturation of about 86%. ABG revealed a pCO2 of 60 and a PO2 of 67. She failed to improve with emergency room management, so she was subsequently admitted for further medical care. HOSPITAL COURSE: Ms. Burr was admitted to the medical floor. She was started on standard care therapy for COPD exacerbation, and Pulmonary Medicine was consulted. During the hospital course Ms. Burr continued to improve. Pulmonary Medicine was consulted. The patient was seen by Dr. Parks, who helped to tweak the medication accordingly. Ms. Burr subsequently continued to improve until today. She refers to feel a lot better. We think she is fairly stable for discharge. Her vital signs this morning, blood pressure is 135/64, pulse of 83, respirations 17, temperature 97.8 degrees and the patient was saturating 95% on 3 L. Physical exam is unchanged except for obesity and she has some mild distant wheezing bilaterally in the lungs. Otherwise physical exam is unremarkable. Ms. Burr has been counseled extensively about tobacco cessation and the need for her to follow up with her primary care doctor as well as Dr. Parks. Ms. Burr is also known to have chronic pain as well as benzodiazepine usage, and she has been advised extensively and cautioned on the usage of those medications in combination, and has been advised to also follow up with Dr. Chahal to start weaning off on narcotics and benzos. Other discharge instructions have been discussed with her. She voiced understanding. Time spent for discharge was 37 minutes. cc: MD Guillaume Lizarraga MD Moses Awoniyi, MD MTDD
== END 2019-03-27 18:31 | disposition home health service (06) | DRG 189 ==
LOC: P.ED 19:49 → P.MEDSURG 23:18 → SUATTDRO 23:18 → 3N 03-21 14:50
PROVIDERS: ATTEND Internal Medicine
CPT/HCPCS: 71010; 71020; 71045; 71046; 80048; 80053; 81001; 82805; 82948; 83735; 83880; 85025; 85610; 87077; 87088; 87186; 93005; 94640; 94660; 94761; 96374; 96375; 99285; A9270; J0456; J0696; J1650; J1815; J1940; J2405; J2930; J7070; J7506; J7512; XXXXX